=== PATIENT | female | born 1995 | race Two or more races ===

== ENCOUNTER 2025-07-31 10:58 | Emergency (ER) | payer BC, SELFPAY ==
[2025-07-31 10:59] VITALS: BMI 27.2
[2025-07-31 11:19] VITALS: BP 140/89; PULSE 74; RESP 18; TEMP 36.8; O2SAT 98
--- NOTE | 2025-07-31 11:33 | XR_ITS ---
Examination: OB Transvaginal ultrasound of the pelvis, complete Technique: Transvaginal sonographic images pelvis performed using scruggs scale imaging Exam date and time: July 31, 2025, 1210 hours INDICATIONS: Vaginal bleeding and pelvic cramping beginning 3 weeks ago FINDINGS: Uterus 8.4 cm no uterine mass or intrauterine gestation Endometrial stripe 18 mm Right ovary 3.6 cm arterial flow Left ovary 3.2 cm arterial flow 26 x 20 mm cyst IMPRESSION: No uterine mass or intrauterine gestation Left ovarian 26 x 20 mm simple cyst.
--- NOTE | 2025-07-31 11:44 | PD.EDRME ---
Rapid Medical Screening Exam E Arrival date/time: 07/31/25 10:58 This is a 29-year-old female that comes into the emergency room with complaints of lower abdominal cramping, and vaginal bleeding. Patient has been seen by primary provider and according to patient suspect ectopic . Patient had an ultrasound done but they did not see anything. Patient's last menstrual period was June 17, 2025. Patient recently had a beta hCG quant of 2352 on July 26. Patient denies any fever, nausea, vomiting, diarrhea. Patient is a 2 para 1. I have greeted and performed a focused initial assessment of this patient. Initial appropriate labs ordered at this time. A comprehensive ED assessment and evaluation of the patient and analysis of all test and completion of medical decision making process will be conducted by additional ED provider. Chief Complaint: Vaginal Bleeding Time Seen by Provider: 07/31/25 11:09 Vital signs: Vital Signs Temperature 98.2 F 07/31/25 11:19 Pulse Rate 74 07/31/25 11:19 Respiratory Rate 18 07/31/25 11:19 Blood Pressure 140/89 H 07/31/25 11:19 Pulse Oximetry (%) 98 07/31/25 11:19 Oxygen Delivery Method Room Air 07/31/25 11:19 Exam: Alert and oriented, breathing even and unlabored, skin warm and dry Clinical Impression: Abdominal pain, vaginal bleeding
[2025-07-31 12:00] LABS: Collection Type, Urine Voided
[2025-07-31 12:02] LABS: Basophils # (Auto) 0.1 Thou/mm3 (0.0-0.2); Basophils % (Auto) 1 % (0-2.5); Eosinophils # (Auto) 0.2 Thou/mm3 (0.0-0.5); Eosinophils % (Auto) 2 % (0-10); Hematocrit 36.2 % (36.0-46.0); Hemoglobin 12.1 g/dL (12.0-16.0); Immature Granulocytes Auto 0.03 Thou/mm3 (0.00-0.00); Lymphocytes # (Auto) 1.9 Thou/mm3 (1.0-4.8); Lymphocytes % (Auto) 26 % (10-50); Mean Corpuscular HGB Conc 33.4 g/dl (31.0-37.0); Mean Corpuscular Hemoglobin 27.8 pg (25.0-35.0); Mean Corpuscular Volume 83 fL (80-100); Monocytes # (Auto) 0.6 Thou/mm3 (0.0-0.8); Monocytes % (Auto) 7 % (0-12); Neutrophils # (Auto) 4.7 Thou/mm3 (1.8-7.7); Neutrophils % (Auto) 63 % (37-80); Nucleated Red Blood Cell # 0.00 Thou/mm3 (0.00-0.00); Nucleated Red Blood Cell % 0 /100 WBC (0); Platelet Count 344 Thou/mm3 (140-440); RDW Standard Deviation 45.5 fL (36.4-46.3); Red Blood Count 4.35 Miln/mm3 (4.00-5.20); White Blood Count 7.4 Thou/mm3 (3.6-11.0)
[2025-07-31 12:05] LABS: Bilirubin,Urine Negative (Negative); Blood,Urine 1+ (Negative); Clarity,Urine Clear (Clear/Hazy); Color,Urine Lt-Yellow (Lt Yel-Yel); Culture Indicated,Urine Not Indicated; Glucose, Urine Negative (Negative); Ketones,Urine Negative (Negative); Leukocyte Esterase,Urine Negative (Negative); Nitrite,Urine Negative (Negative); PH,Urine 6.5 (5.0-7.0); Protein,Urine Negative (Neg - Trace); RBC,Urine 2 /hpf (0-3); Specific Gravity,Urine 1.021 (1.001-1.035); Squamous Epithelial Cell,Urine 1 /hpf (0-5); Urobilinogen,Urine Negative mg/dL (0.0-1.0); WBC,Urine < 1 /hpf (0-5)
[2025-07-31 12:27] LABS: Alanine Aminotransferase 20 U/L (10-49); Albumin, Serum 4.6 gm/dL (3.5-5.0); Albumin/Globulin Ratio 1.7 (1.2-2.2); Alkaline Phosphatase 85 U/L (46-116); Anion Gap 11 (7-16); Aspartate Amino Transferase 23 U/L (0-34); BUN/Creatinine Ratio 9 Ratio (12-20); Bilirubin,Total 0.3 mg/dL (0.3-1.2); Blood Urea Nitrogen 7 mg/dL (9-23); Calcium 9.1 mg/dL (8.3-10.6); Calcium (Corrected) 9.1 mg/dL (8.5-10.1); Carbon Dioxide 23.2 mMol/L (20.0-31.0); Chloride 107 mMol/L (98-107); Creatinine (Component) 0.8 mg/dL (0.6-1.3); Estimated Creatinine Clearance 91.8 mL/min (>60); Globulin 2.7 gm/dL (2.3-3.5); Glucose 95 mg/dL (74-106); Osmolality,Calculated 279 (275-295); Potassium 4.1 mMol/L (3.4-5.1); Sodium 141 mMol/L (136-145); Total Protein 7.3 gm/dL (5.7-8.2); eGFR > 60 See Note
[2025-07-31 15:12] VITALS: BP 148/76; PULSE 73; RESP 18; TEMP 37.2; O2SAT 100
--- NOTE | 2025-07-31 15:23 | PD.EDVAGBL ---
ED OB Contraction Preg RMI/HPI General Chief complaint: Vaginal Bleeding Stated complaint: VAG. BLEED X3 WKS R/O ECTOPIC ; 4WEEKS OB Time Seen by Provider: 07/31/25 11:09 Arrival date/time: 07/31/25 10:58 29-year-old female patient came in for evaluation regarding rule out ectopic . Patient is 2 para 1, about 4 weeks , was sent to us by PCP to rule out ectopic . Patient went to PCP yesterday they did an ultrasound and cannot find intrauterine gestation. Patient was noted to have an hCG above 2000 patient also complained of on and off pelvic pain for several days. Denies any vaginal bleeding but complain of mild spotting. Denies any other complaints no medication was taken prior to ER visit. RME / HPI RME / HPI Narrative: 07/31/25 10:58 This is a 29-year-old female that comes into the emergency room with complaints of lower abdominal cramping, and vaginal bleeding. Patient has been seen by primary provider and according to patient suspect ectopic . Patient had an ultrasound done but they did not see anything. Patient's last menstrual period was June 17, 2025. Patient recently had a beta hCG quant of 2352 on July 26. Patient denies any fever, nausea, vomiting, diarrhea. Patient is a 2 para 1. I have greeted and performed a focused initial assessment of this patient. Initial appropriate labs ordered at this time. A comprehensive ED assessment and evaluation of the patient and analysis of all test and completion of medical decision making process will be conducted by additional ED provider. Exam: Alert and oriented, breathing even and unlabored, skin warm and dry Impression: Abdominal pain, vaginal bleeding Related Data Allergies Allergy/AdvReac Type Severity Reaction Status Date / Time No Known Allergies Allergy Verified 07/31/25 11:02 Review of Systems Review of Systems Narrative Review of Systems: Review of system reviewed and within normal limits except mentioned in HPI ED Exam Narrative Physical exam: VITAL SIGNS: Reviewed. GENERAL APPEARANCE: Alert and interactive, follows commands, no acute distress, HEAD AND FACE: Non-traumatic. ENT: PERRL, pink conjunctivitis, eyelid no trauma, Mucous membrane moist. NECK: Supple, nontender, no nuchal rigidity. RECTAL: Deferred. GENITAL: Deferred. NEUROLOGICAL: Gross motor function intact sensory function intact, Appropriate for age. MUSCULOSKELETAL: low back nontender, full range of motion. EXTREMITIES: Nontender, full range of motion. SKIN: Color pink, dry, no rash, no lacerations, no abrasions, no contusions. LYMPHATICS: Deferred. Course Quality Measures none Orders Category Date Time Status US OB transvaginal Stat Exams 07/31/25 11:33 Completed Beta HCG,Quantitative Stat Lab 07/31/25 11:44 Completed CBC Stat Lab 07/31/25 11:44 Completed Comprehensive Metabolic Panel Stat Lab 07/31/25 11:44 Completed Type and Screen Stat Lab 07/31/25 11:44 Completed Urinalysis, C/S if Indicated Stat Lab 07/31/25 11:53 Completed Vital Signs Vital signs: Vital Signs Temperature 98.2 F 07/31/25 11:19 Pulse Rate 74 07/31/25 11:19 Respiratory Rate 18 07/31/25 11:19 Blood Pressure 140/89 H 07/31/25 11:19 Pulse Oximetry (%) 98 07/31/25 11:19 Oxygen Delivery Method Room Air 07/31/25 11:19 Vaginal Bleeding MDM Narrative MDM Narrative: 29-year-old female patient came in for evaluation regarding rule out ectopic . Patient is 2 para 1, about 4 weeks , was sent to us by PCP to rule out ectopic . Patient went to PCP yesterday they did an ultrasound and cannot find intrauterine gestation. Patient was noted to have an hCG above 2000 patient also complained of on and off pelvic pain for several days. Denies any vaginal bleeding but complain of mild spotting. Denies any other complaints no medication was taken prior to ER visit. Ultrasound of the did not show any intrauterine gestation, no adnexal masses noted. Except for ovarian cyst.. Patient's hCG was noted to be more than 1000. There is of the labs unremarkable. Results discussed with the family. And patient and advised her to come back to the emergency room for repeat hCG Patient data External records reviewed:: None Clinical information provided by:: patient Social determinants that could affect healthcare access:: none Patient has the following chronic illnesses:: None How is presenting disease/condition affected by chronic disease/condition?: no chronic disease Evaluation data The following diagnostics were reviewed and interpreted by me:: lab results and radiology exam(s) Lab and/or radiology exams considered but not ordered:: None see above Interpretation Summary: See above Medications / Prescriptions Medications or Prescriptions considered but not ordered:: None Medication administrations:: None Consultations Consultation(s) initiated? (list below): No Diagnosis Vaginal Bleeding Differential Diagnosis: missed , incomplete and vaginal bleeding Most likely diagnosis given after review of the tests above:: Admission Indicated Admission indicated?: not indicated Admission Request Was there a request for admission?: No Disposition Plan Disposition Plan: Discharge Discharge Attestation Discharge Attestation: The patient and all family members were given an opportunity to ask questions and understood the discharge instructions. Discharge instructions specifically effects, indications for sooner follow up or return to the emergency department, and the expected course of current diagnosis. Patient condition: Stable Discharge Plan Plan Patient Disposition: HOME (Self Care) Discharge Disposition comment: Stable Prescriptions/Referrals Referrals: Monique Clayton PA-C [Primary Care Provider, Emergency Medicine] - In 1 week Problem List Clinical Impression: Currently Patient/Caregiver Discharge Instructions Discharge Activity: activity as tolerated Education Materials: What Is Care? Additional Instructions: Thank you for the opportunity for serving you today. You are stable for discharged . You are advised to: Follow-up with your [facility] in 1 to 2 days Return to ED for worsening of symptoms Increase oral fluids Please return to ER for repeat hCG in 2 to 3 days d Print Language: Welsh Stand Alone Forms: Chanelle Award Info., Patient Portal Info Letter
[2025-07-31 16:12] LABS: Beta HCG,Quantitative 5912 mIU/mL (<5.0)
== END 2025-07-31 15:32 | disposition home or self-care (01) ==
PROVIDERS: Nurse Practitioner Family; Emergency Provider Emergency Medicine; PCP Physician Assistant
DX: O34.81 Maternal care for other abnormalities of pelvic organs, first trimester (principal); N83.292 Other ovarian cyst, left side; Z3A.01 Less than 8 weeks gestation of pregnancy
CPT/HCPCS: 36415; 76817; 80053; 81001; 84702; 85025; 86850; 86900; 86901; 99283